=== PATIENT | female | born 1980 | race Caucasian/White ===

== ENCOUNTER 2017-05-08 05:50 | Observation (INO) | payer MEDICAID ==
[~2017-05-08] VITALS: Ht 144.8 cm; Wt 62.1 kg
[2017-05-08] MEDS ORDERED: LACTATED RINGERS 1,000 ML IV ONE (07:00)
== END 2017-05-08 08:15 | disposition home or self-care (01) ==
LOC: L&D 05:50
PROVIDERS: ADMIT Obstetrics & Gynecology; ATTEND Obstetrics & Gynecology
DX: O62.9 Abnormality of forces of labor, unspecified (principal); Z3A.38 38 weeks gestation of pregnancy
CPT/HCPCS: 96360; 99281; G0378; J7120